=== PATIENT | male | born 1975 | race Caucasian/White ===

== ENCOUNTER 2017-12-28 06:50 | Emergency (ER) | payer MEDICAID ==
[2017-12-28] MEDS: KETOROLAC 30 MG INJ IM (07:37)
== END 2017-12-28 08:00 | disposition home or self-care (01) ==
LOC: FTE 06:50
DX: M79.652 Pain in left thigh (principal); M79.605 Pain in left leg
CPT/HCPCS: 96372; 99284-25

== ENCOUNTER 2018-11-17 08:22 | Emergency (ER) | payer MEDICAID | END 2018-11-17 09:20 | disposition home or self-care (01) | LOC: FTE 09:20 | DX: L30.9 Dermatitis, unspecified (principal); B35.9 Dermatophytosis, unspecified | CPT/HCPCS: 99282; Z7502 ==